=== PATIENT | female | born 1960 | race Two or more races ===

== ENCOUNTER → 2017-01-25 | Outpatient (CLI) | payer MEDICAID ==
--- NOTE | 2017-01-25 15:04 | RADIOLOGY REPORT (SQ) ---
EXAM DESCRIPTION: NM HIDA SCAN WITH CCK COMPLETED DATE/TIME: 01/25/2017 2:42 pm REASON FOR STUDY: RUQ ABDOMINAL PAIN R10.11 RIGHT UPPER QUADRANT PAIN COMPARISON: None. RADIONUCLIDE AND DOSE: DOSAGE RADIONUCLIDE: 5.26 millicuries Tc99m Mebrofenin. DOSAGE CCK: 0.9 micrograms. DOSAGE MORPHINE: Not required. The route of agent administration: Intravenous TECHNIQUE: Serial imaging right upper quadrant up to 60 minutes following injection of radionuclide. CCK injected after gallbladder visualized. LIMITATIONS: None. FINDINGS: LIVER: Normal visualization without areas of photopenia. INTRA AND EXTRAHEPATIC BILE DUCTS: Normal accumulation of activity. GALLBLADDER: Normal visualization. Calculated Ejection Fraction of 5%. Below the normal value of 35% or greater. PHYSICAL RESPONSE: Patients presenting complaint was not reproduced. OTHER: No other significant finding. IMPRESSION: LOW GALLBLADDER EJECTION FRACTION. EVIDENCE FOR BILIARY DYSKINESIS. NO CYSTIC OR COMMO N DUCT OBSTRUCTION. TECHNICAL DOCUMENTATION: JOB ID: [id number] [employer]- All Rights Reserved
== END ==
LOC: RAD 12:24
PROVIDERS: ATTEND Family Medicine
DX: R10.11 Right upper quadrant pain (principal)
CPT/HCPCS: 78227; A9537; J2805

== ENCOUNTER 2017-03-14 12:53 | Day surgery (SDC) | payer MEDICAID ==
[2017-03-07 10:28] LABS: HEMATOCRIT 37.1 % (36.0-47.0); HEMOGLOBIN 13.2 g/dL (12.0-15.5); HGB HCT DIFFERENCE 2.5; MEAN CORPUSCULAR HEMOGLOBIN 33.5 pg (27.0-33.4); MEAN CORPUSCULAR HGB CONC 35.5 g/dL (32.0-36.0); MEAN CORPUSCULAR VOLUME 94 fl (80-97); RED BLOOD COUNT 3.94 10^6/uL (3.72-5.28); RED CELL DISTRIBUTION WIDTH 12.8 % (11.5-14.0)
[2017-03-07 10:56] LABS: ANION GAP 10 (5-19); BLOOD UREA NITROGEN 18 mg/dL (7-20); CALCIUM 9.3 mg/dL (8.4-10.2); CARBON DIOXIDE 29 mmol/L (22-30); CHLORIDE 103 mmol/L (98-107); GLUCOSE 74 mg/dL (75-110); POTASSIUM 4.2 mmol/L (3.6-5.0); SODIUM 142.4 mmol/L (137-145)
--- NOTE | 2017-03-07 11:58 | EKG REPORT ---
SEVERITY:- BORDERLINE ECG - SINUS RHYTHM VENTRICULAR PREMATURE COMPLEX BORDERLINE T ABNORMALITIES, ANT-LAT LEADS : Confirmed by: Luisito Galarza 07-Mar-2017 11:57:58
[~2017-03-14 12:53] MED LIST: BUPIVACAINE HCL 0.25 % INJ/PF (2.5 MG/1 ML) 30 ML VIAL ONE; CIPROFLOXACIN 400 MG/D5W RTU 400 MG/200 ML RTUPB IV PRN; DEXAMETHASONE SOD PHOSPHATE INJ 4 MG/1 ML VIAL ONE; GLYCOPYRROLATE INJ 0.4 MG/2 ML VIAL ONE; LACTATED RINGERS 1000 ML IV PRN; LIDOCAINE 0.5% INJ-PF (5 MG/ML) 50 ML SDV SUBCUT PRN; LIDOCAINE 2% INJ-PF (20 MG/ML) 2 ML AMPUL ONE; ONDANSETRON HCL INJ/PF 4 MG/2 ML SDV ONE; SUCCINYLCHOLINE CHLORIDE INJ 200 MG/10 ML VIAL ONE; VECURONIUM BROMIDE INJ 10 MG VIAL IV ONE
[2017-03-14] MEDS ORDERED: FENTANYL CITRATE INJ/PF 100 MCG/2 ML AMPUL ONE ×4 (14:30→16:37)
[2017-03-14] MEDS ORDERED: PROPOFOL INJ 200 MG/20 ML VIAL IV ONE ×2 (14:31→14:55)
[2017-03-14] MEDS ORDERED: MIDAZOLAM 2 MG/2 ML INJ ONE ×2 (14:31→14:55)
[2017-03-14] MEDS ORDERED: BUPIVACAINE HCL 0.25 % INJ/PF (2.5 MG/1 ML) 30 ML VIAL ONE (14:47)
[2017-03-14] MEDS ORDERED: LIDOCAINE 2% INJ-PF (20 MG/ML) 10 ML AMPUL ONE (14:54)
[2017-03-14] MEDS ORDERED: ONDANSETRON HCL INJ/PF 4 MG/2 ML SDV ONE (14:55)
[2017-03-14] MEDS ORDERED: ACETAMINOPHEN 100 ML IV ONE (14:55)
[2017-03-14] MEDS ORDERED: DEXAMETHASONE SOD PHOSPHATE INJ 4 MG/1 ML VIAL ONE (14:55)
[2017-03-14] MEDS ORDERED: MORPHINE SULFATE 10 MG/ML INJ ONE (14:56)
--- NOTE | 2017-03-14 15:25 | PDOC DISCHARGE SUMMARY ---
Discharge Summary (SDC) - Discharge Final Diagnosis: biliary colic Date of Surgery: 03/14/17 Discharge Date: 03/14/17 Condition: Stable Treatment or Instructions: [facility] [address], [place] [address] Discharge Instructions: Laparoscopic Surgery 1. General Information: a. DO NOT DRIVE a car or operate dangerous machinery for 3-4 days or while taking narcotic pain pills. b. DO NOT consume alcohol, tranquilizers, sleeping medications or any non- prescribed medications for 24 hours unless approved by your doctor or as long as taking narcotic prescription medications. c. DO NOT make important decisions or sign any important papers for the first 24 hours after surgery. d. When discharged home the same day of surgery have a responsible person with you for the first night. 2. Activity Restrictions: 2 weeks a. NO heavy lifting, straining abdominal muscles, bending over a lot, yard work, house work, or sports for [address] NOT drive for 3-4 days c. It is fine to go for walks, up and down steps, ride in a car. d. Elevate your head when sleeping/resting. 3. Treatment: a. You may shower 24 hours after surgery, no baths or swimming for 2 weeks. Remove band-aids or dressings before shower but leave paper strips (steri-strips ) on the skin to fall off on their own. If still on at postoperative visit they will be removed then. b. Drainage of fluid or blood is not unusual from an incision. If occurs, you can clean with peroxide and cotton ball daily and cover with dry gauze until the wound seals. c. If a lot of bleeding occurs, you can hold pressure with a gauze or cloth over the site for 10 minutes and it will usually stop. If bleeding continues you will need to call for possible evaluation in office or emergency room. 4. Medications: a. Toradol may be taken for pain as needed, one tablets every 6 hours. Stop the narcotic when able since you cannot take it and drive, and they cause constipation. You may switch to plain Tylenol as you transition from the narcotic. Many adults find good pain relief with Advil 600-800 mg three times a day with meals. You cannot take Advil while taking Toradol This can cause indigestion, ulcers, and kidney problems with long-term use. b. You should resume all normal medications unless a change is specified by your doctors. c. 5. Diet: Begin with clear liquids and may progress to your normal diet if not nauseated. No high fat, high protein foods the day of surgery. 6. The following may occur after laparoscopic surgery: a. Shoulder or upper back ache from retained gas that should resolve in 1-2 days b. Soreness and bruising at incision sites will resolve with time. c. Scrotal swelling (labia in women) and bruising is often seen after hernia surgery. d. Sore throat e. Fatigue may last days to weeks. f. Difficulty urinating may occur and may need to come into emergency room for urinary catheter placement. 7. Notify Physician If: a. Worsening or pain not improved with pain medication b. Persistent nausea and vomiting c. Fever above 101 d. Persistent bleeding or swelling at operative site e. Unable to urinate and uncomfortable bladder 6-8 hours after surgery 8..Follow Up Care: a. Schedule a follow up appointment with your doctor for 2 weeks. In the event of any postoperative problems or questions or you may call the office during business hours or the On-Call physician evenings and weekends at [facility]. [facility] I understand the instructions for my postoperative care as described above and a copy has been given to me. Patient/Significant Other Witness Date Prescriptions: Ketorolac Tromethamine [Toradol 10 mg Tablet] 10 mg PO Q6HP PRN #25 tablet PRN Reason: Referrals: CHARLES DOBBINS DO [Primary Care Provider] - Discharge Diet: Other (Comments) - Small bland portions Discharge Activity: No Lifting Over 10 Pounds, Walk Frequently Report the Following to Your Physician Immediately: Nausea, Vomiting, Fever over 101 Degrees, Unusual Bleeding, Redness
[2017-03-14] MEDS ORDERED: DIPHENHYDRAMINE HCL 50 MG/ML VIAL IV PRN (15:44)
[2017-03-14] MEDS ORDERED: MEPERIDINE HCL/PF INJ 25 MG/1 ML DISP.SYRIN IV PRN (15:44)
[2017-03-14] MEDS ORDERED: ONDANSETRON HCL INJ/PF 4 MG/2 ML SDV IV PRN (15:44)
[2017-03-14] MEDS ORDERED: PROMETHAZINE HCL INJ 25 MG/1 ML VIAL IV PRN ×2 (15:44)
[2017-03-14] MEDS ORDERED: FENTANYL CITRATE INJ/PF 100 MCG/2 ML AMPUL IV PRN ×3 (15:44)
--- NOTE | 2017-03-14 16:00 | Operative Report ---
Operative Report DATE OF SURGERY: 03/14/17 PREOPERATIVE DIAGNOSIS: Biliary dyskinesia POSTOPERATIVE DIAGNOSIS: Same OPERATION: Laparoscopic cholecystectomy SURGEON: CORRY FOSTER 1ST CERTIFIED REAL ESTATE APPRAISER: FAUSTINA PAIGE ANESTHESIA: GA TISSUE REMOVED OR ALTERED: Gallbladder with contents COMPLICATIONS: None ESTIMATED BLOOD LOSS: Scant INTRAOPERATIVE FINDINGS: See below PROCEDURE: After obtaining informed consent, the patient was taken to the operating room. General Anesthesia was induced; the arms were extended, and the abdomen was exposed, and prepped and draped in a sterile fashion. Instrumentation was set up for laparoscopic cholecystectomy. Surgical plan and surgical timeout were conducted. A vertical incision was made above the umbilicus, and a verres needle was inserted uneventfully into the peritoneal cavity. Pneumoperitoneum was established. The verres needle was removed and a 5 mm trocar was inserted and a 5 mm flexible laparoscope was inserted. Visualization of the peritoneal cavity confirmed safe uneventful entry. Under direct visualization 3 additional 5 mm ports were established, one in the subxiphoid position and second in the subcostal position. Visualization of the hepatobiliary anatomy revealed no anatomic variations. A grasper was placed on the fundus of the gallbladder and the gallbladder is elevated over the right surface of the liver; a second grasper was used to grasp the infundibulum of the gallbladder. The neck of the gallbladder and junction with the cystic duct was dissected out. The Cystic artery was in its usual location medial and cephalad to the cystic duct. The cystic artery was surrounded with a right angle clamp, clipped twice proximally and divided with laparoscopic scissors. We now opened the triangle of Calot by dividing the peritoneal reflection on both the medial and lateral sides of the cystic duct infundibular junction. The critical view was obtained. We now milked the cystic duct of any possible stones, clipped the cystic duct approximately 2 times once distally and divided with scissors. The gallbladder was now removed from the undersurface of the liver using hook cautery dissection. Graspers were repositioned and the gallbladder was removed uneventfully from the abdominal cavity through the super umbilical port site incision. The specimen was examined, then passed off to pathology for permanent analysis. We returned to the peritoneal cavity check for bleeding, and evidence of bile leak, and there was none. We Confirmed satisfactory placement of clips on cystic duct and cystic artery were secured . At this point we felt the operation was complete. The subcutaneous tissue was then anesthetized with quarter percent Marcaine Sponge and needle counts are correct. All ports removed under direct visualization pneumoperitoneum evacuated, and 5 mm port wounds closed with 3-0 Vicryl suture, benzoin and Steri-Strips. The patient was extubated, and taken to the recovery room in stable condition. The physician administrative personal assistant, Ms. Khan, provided assistance during this case by: Assisting and port insertion, retracting tissue, instillation of local anesthesia and closure of skin incisions.
[2017-03-14] MEDS ORDERED: KETOROLAC TROMETHAMINE 10 MG TABLET PO PRN (17:08)
[2017-03-14] MEDS ORDERED: METOCLOPRAMIDE HCL INJ/PF 10 MG/2 ML SDV ONE (17:13)
[2017-03-14 19:23] VITALS: BP 92/58
== END 2017-03-14 18:35 | disposition home or self-care (01) ==
LOC: OROUT 12:53
PROVIDERS: ATTEND Surgery
PROC: 0FT44ZZ Resection of Gallbladder, Percutaneous Endoscopic Approach (ICD-10-PCS; principal; 2017-03-14 14:15)
DX: K82.8 Other specified diseases of gallbladder (principal); E03.9 Hypothyroidism, unspecified; R53.1 Weakness; R26.2 Difficulty in walking, not elsewhere classified; K21.9 Gastro-esophageal reflux disease without esophagitis; Z88.0 Allergy status to penicillin; Z88.5 Allergy status to narcotic agent; Z79.899 Other long term (current) drug therapy
CPT/HCPCS: 93005; 36415; 85027; 80048; 88304 ×2; 93010; 47562; J2250; J1100; J3010; J3490 ×3; J2765; J0330; J2405; S0020; J2704; J0744; J0131; 790; J2270

== ENCOUNTER 2017-11-05 16:48 | Emergency (ER) | payer MEDICAID ==
--- NOTE | 2017-11-05 17:27 | ER Document Report ---
ED Medical Screen (RME) - General Chief Complaint: Ankle Injury Stated Complaint: L ANKLE PAIN Time Seen by Provider: 11/05/17 17:26 Mode of Arrival: Wheelchair Information source: Patient Notes: Patient presents emergency department with complaints of left ankle pain. Reports she fell in her house last night around midnight. Complains of ankle pain. Has brace on her ankle. I have greeted and performed a rapid initial assessment of this patient. A comprehensive ED assessment and evaluation of the patient, analysis of test results and completion of the medical decision making process will be conducted by additional ED providers. TRAVEL OUTSIDE OF THE [place] IN LAST 30 DAYS: No - Related Data Allergies/Adverse Reactions: morphine Allergy (Severe, Verified 11/05/17 16:49) ? iodine [Iodine] Allergy (Verified 11/05/17 16:49) Penicillins Allergy (Verified 11/05/17 16:49) Sulfa (Sulfonamide Antibiotics) Allergy (Verified 11/05/17 16:49) Past Medical History - Past Medical History Cardiac Medical History: Denies: Hx Coronary Artery Disease, Hx Heart Attack, Hx Hypercholesterolemia , Hx Hypertension - LOW BP Pulmonary Medical History: Denies: Hx Asthma, Hx Bronchitis, Hx COPD, Hx Pneumonia Neurological Medical History: Denies: Hx Cerebrovascular Accident, Hx Migraine, Hx Seizures Endocrine Medical History: Denies: Hx Diabetes Mellitus Type 2 GI Medical History: Denies: Hx Gastroesophageal Reflux Disease Musculoskeltal Medical History: Denies Hx Arthritis - Immunizations Hx Diphtheria, Pertussis, Tetanus Vaccination: Yes History of Influenza Vaccine for 12/2016 - 05/2017 Season: No Doctor's Discharge - Discharge Referrals: CHARLES DOBBINS DO [Primary Care Provider] - Follow up as needed
[2017-11-05 18:21] VITALS: BP 92/61
[2017-11-05] MEDS ORDERED: ACETAMINOPHEN 325 MG TABLET PO ONE (18:24)
[2017-11-05] MEDS ORDERED: IBUPROFEN 400 MG TABLET PO ONE (18:24)
--- NOTE | 2017-11-05 18:46 | RADIOLOGY REPORT (SQ) ---
EXAM DESCRIPTION: FOOT LEFT COMPLETE COMPLETED DATE/TIME: 11/05/2017 6:38 pm REASON FOR STUDY: twisted ankle COMPARISON: None. NUMBER OF VIEWS: Three views. TECHNIQUE: AP, lateral and oblique radiographic images acquired of the left foot. LIMITATIONS: None. FINDINGS: MINERALIZATION: Normal. BONES: No acute fracture or dislocation. No worrisome bone lesions. JOINTS: No effusions. SOFT TISSUES: No soft tissue swelling. No foreign body. OTHER: No other significant finding. IMPRESSION: NEGATIVE STUDY OF THE LEFT FOOT. NO RADIOGRAPHIC EVIDENCE OF ACUTE INJURY. TECHNICAL DOCUMENTATION: JOB ID: [id number] [employer]- All Rights Reserved Reading location - IP/workstation name: [email or web address]
--- NOTE | 2017-11-05 18:48 | RADIOLOGY REPORT (SQ) ---
EXAM DESCRIPTION: ANKLE LEFT COMPLETE COMPLETED DATE/TIME: 11/05/2017 6:38 pm REASON FOR STUDY: twisted ankle COMPARISON: None. NUMBER OF VIEWS: Three views. TECHNIQUE: AP, lateral, and oblique radiographic images acquired of the left ankle. LIMITATIONS: None. FINDINGS: MINERALIZATION: Normal. BONES: No acute fracture or dislocation. No worrisome bone lesions. JOINTS: No effusions. SOFT TISSUES: No soft tissue swelling. No foreign body. OTHER: No other significant finding. IMPRESSION: NEGATIVE STUDY OF THE LEFT ANKLE. NO RADIOGRAPHIC EVIDENCE OF ACUTE INJURY. TECHNICAL DOCUMENTATION: JOB ID: [id number] [employer]- All Rights Reserved Reading location - IP/workstation name: [email or web address]
--- NOTE | 2017-11-05 18:57 | ER Document Report ---
HPI - HPI Patient complains to provider of: fell Onset/Duration: Sudden Quality of pain: Throbbing Pain Level: 5 Context: 57 yo female fell today and twisted left ankle. In by EMS. No previous injury Associated Symptoms: None Exacerbated by: Walking Relieved by: Denies - ROS ROS below otherwise negative: Yes Systems Reviewed and Negative: Yes All other systems reviewed and negative - REPRODUCTIVE Reproductive: DENIES: : Past Medical History - General Information source: Patient - Social History Smoking Status: Never Smoker Frequency of alcohol use: None Drug Abuse: None Lives with: Family Family History: Hypertension Surgical Hx: Negative - Immunizations Hx Diphtheria, Pertussis, Tetanus Vaccination: Yes Vertical Provider Document - CONSTITUTIONAL Agree With Documented VS: Yes Exam Limitations: No Limitations General Appearance: No Apparent Distress - INFECTION CONTROL TRAVEL OUTSIDE OF THE [place] IN LAST 30 DAYS: No - MUSCULOSKELETAL/EXTREMETIES Musculoskeletal/Extremeties: MAEW, Tender, Edema - dorsal left selena and inferior to bilateral malleoli Notes: 2+ DP - NEURO Level of Consciousness: Alert Motor/Sensory: No Motor Deficit, No Sensory Deficit Course - Re-evaluation Re-evalutation: 11/05/17 18:55 X-rays are negative per radiologist, will splint and refer to ortho - Vital Signs Vital signs: Temp Pulse Resp BP Pulse Ox 98.2 F 68 16 92/61 L 99 11/05/17 18:19 11/05/17 18:19 11/05/17 18:19 11/05/17 18:19 11/05/17 18:19 Procedures - Immobilization Left Ankle Time completed: 19:02 Pre-Proc Neuro Vasc Exam: Normal Immobilizer type: Ankle stirrup Performed by: PCT Post-Proc Neuro Vasc Exam: Normal Alignment checked and good: Yes Discharge - Discharge Clinical Impression: Ankle sprain Qualifiers: Encounter type: initial encounter Involved ligament of ankle: unspecified ligament Laterality: unspecified laterality Qualified Code(s): S93.409A - Sprain of unspecified ligament of unspecified ankle, initial encounter Condition: Good Disposition: HOME, SELF-CARE Instructions: Acetaminophen, Ankle Stirrup Splint ([facility]), Ibuprofen (General) ( [facility]), Sprained Ankle ([facility]) Additional Instructions: Splint for comfort Tylenol up to 4000 mg per day for discomfort Motrin 3 times a day for inflammation See the orthopedist if the ankle still hurts a week from now copy of negative imaging reports given to you Prescriptions: Ibuprofen [Motrin 400 mg Tablet] 400 mg PO Q6HP PRN #30 tablet PRN Reason: Referrals: CHARLES DOBBINS DO [Primary Care Provider] - Follow up as needed
== END 2017-11-05 19:17 | disposition home or self-care (01) ==
LOC: ER 16:48
DX: S93.409A Sprain of unspecified ligament of unspecified ankle, initial encounter (principal); W19.XXXA Unspecified fall, initial encounter
CPT/HCPCS: 99283; 73610; 73630; L4350; J3490 ×2

== ENCOUNTER 2018-11-05 20:17 | Emergency (ER) | payer MEDICAID ==
[2018-11-05] MEDS ORDERED: DIPHENHYDRAMINE HCL 25 MG CAPSULE PO ONE (22:00)
[2018-11-05] MEDS ORDERED: DOXYCYCLINE HYCLATE 100 MG TABLET PO ONE (22:04)
--- NOTE | 2018-11-05 22:04 | ER Document Report ---
ED General - General Chief Complaint: Insect Bite Stated Complaint: POSSIBLE INSECT BITES Time Seen by Provider: 11/05/18 21:58 Primary Care Provider: CHARLES DOBBINS DO [Primary Care Provider] - Follow up as needed TRAVEL OUTSIDE OF THE [place] IN LAST 30 DAYS: No - HPI Patient complains to provider of: bug bites Notes: 88-year-old female presents with count was bug bites all over her bilateral upper extremities of her chest and legs. She presents via EMS. They say her house was crawling but she was covered in bedbugs. Patient emergently taken to our decontamination room. Where she is showered and scrubbed. Patient continues to endorse profound itching. Denies fever chills or cough. - Related Data Allergies/Adverse Reactions: morphine Allergy (Severe, Verified 11/05/18 21:39) ? iodine [Iodine] Allergy (Verified 11/05/18 21:39) Penicillins Allergy (Verified 11/05/18 21:39) Sulfa (Sulfonamide Antibiotics) Allergy (Verified 11/05/18 21:39) Past Medical History - Social History Smoking Status: Unknown if Ever Smoked Family History: Hypertension Patient has suicidal ideation: No Patient has homicidal ideation: No - Past Medical History Cardiac Medical History: Denies: Hx Coronary Artery Disease, Hx Heart Attack, Hx Hypercholesterolemia, Hx Hypertension - LOW BP Pulmonary Medical History: Denies: Hx Asthma, Hx Bronchitis, Hx COPD, Hx Pneumonia Neurological Medical History: Denies: Hx Cerebrovascular Accident, Hx Migraine, Hx Seizures Endocrine Medical History: Denies: Hx Diabetes Mellitus Type 2 Renal/ Medical History: Denies: Hx Peritoneal Dialysis GI Medical History: Denies: Hx Gastroesophageal Reflux Disease Musculoskeletal Medical History: Denies Hx Arthritis - Immunizations Hx Diphtheria, Pertussis, Tetanus Vaccination: Yes Review of Systems - Review of Systems Notes: REVIEW OF SYSTEMS: CONSTITUTIONAL: -fevers, -chills EENT: -eye pain, -difficulty swallowing, -nasal congestion CARDIOVASCULAR: -chest pain, -syncope. RESPIRATORY: -cough, -SOB GASTROINTESTINAL: -abdominal pain, -nausea, -vomiting, -diarrhea GENITOURINARY: -dysuria, -hematuria MUSCULOSKELETAL: -back pain, -neck pain SKIN: large Number of bug bites over her entire body. Multiple scratching deleon HEMATOLOGIC: -easy bruising or bleeding. LYMPHATIC: -swollen, enlarged glands. NEUROLOGICAL: -altered mental status or loss of consciousness, -headache, - neurologic symptoms PSYCHIATRIC: -anxiety, -depression. ALL OTHER SYSTEMS REVIEWED AND NEGATIVE. Physical Exam - Vital signs Vitals: Temp Pulse Resp BP Pulse Ox 97.5 F 74 20 99/59 L 100 11/05/18 21:09 11/05/18 21:09 11/05/18 21:09 11/05/18 21:09 11/05/18 21:09 - Notes Notes: PHYSICAL EXAMINATION: GENERAL: Well-appearing, well-nourished and in no acute distress. HEAD: Atraumatic, normocephalic. EYES: Pupils equal round and reactive to light, extraocular movements intact, sclera anicteric, conjunctiva are normal. ENT: nares patent, oropharynx clear without exudates. Moist mucous membranes. NECK: Normal range of motion, supple without lymphadenopathy LUNGS: Breath sounds clear to auscultation bilaterally and equal. No wheezes rales or rhonchi. HEART: Regular rate and rhythm without murmurs ABDOMEN: Soft, nontender, normoactive bowel sounds. No guarding, no rebound. No masses appreciated. EXTREMITIES: Normal range of motion, no pitting or edema. No cyanosis. NEUROLOGICAL: Cranial nerves grossly intact. Normal speech, normal gait. Normal sensory and motor exams. PSYCH: Normal mood, normal affect. SKIN: Any bug bites with scratching possible secondary infection throughout her body. Course - Re-evaluation Re-evalutation: 11/05/18 22:17 58-year-old female presents with a large number of insect bites all over her body. [facility]. Patient recommended that she shave her head. The last herself.. Patient was given oral diphenhydramine for itching, hydrocortisone cream as well. Doxycycline for possible secondary skin infection. Will be discharged home 11/05/18 22:21 Prescription for doxycycline and permethrin - Vital Signs Vital signs: Temp Pulse Resp BP Pulse Ox 97.5 F 74 20 99/59 L 100 11/05/18 21:09 11/05/18 21:09 11/05/18 21:09 11/05/18 21:09 11/05/18 21:09 Discharge - Discharge Clinical Impression: Infestation by bed bug Condition: Stable Disposition: HOME, SELF-CARE Instructions: Insect Bites ([facility]) Prescriptions: Doxycycline Monohydrate [Mondoxyne Nl] 100 mg PO BID #14 capsule Permethrin [A-200 Lice Control] 1 applic MC ASDIR PRN #1 spray PRN Reason: Referrals: CHARLES DOBBINS DO [Primary Care Provider] - Follow up as needed
[2018-11-05] MEDS ORDERED: HYDROCORTISONE 1% CREAM 28.35 GM TP ONE (22:16)
[2018-11-05] MEDS ORDERED: HYDROCORTISONE 1% CREAM 28.35 GM ONE (22:56)
[2018-11-05 23:17] VITALS: BP 124/72
== END 2018-11-05 23:10 | disposition home or self-care (01) ==
LOC: ER 20:17
DX: S40.862A Insect bite (nonvenomous) of left upper arm, initial encounter (principal); S40.861A Insect bite (nonvenomous) of right upper arm, initial encounter; S20.369A Insect bite (nonvenomous) of unspecified front wall of thorax, initial encounter; S80.862A Insect bite (nonvenomous), left lower leg, initial encounter; S80.861A Insect bite (nonvenomous), right lower leg, initial encounter; W57.XXXA Bitten or stung by nonvenomous insect and other nonvenomous arthropods, initial encounter; Y92.009 Unspecified place in unspecified non-institutional (private) residence as the place of occurrence of the external cause; Z88.0 Allergy status to penicillin; Z88.5 Allergy status to narcotic agent; Z88.2 Allergy status to sulfonamides
CPT/HCPCS: 99281; J3490 ×3

== ENCOUNTER 2018-11-07 13:39 | Emergency (ER) | payer MEDICAID ==
[2018-11-07 13:56] VITALS: BP 105/59
[2018-11-07] MEDS ORDERED: DIPHENHYDRAMINE HCL 50 MG CAPSULE PO ONE (15:45)
--- NOTE | 2018-11-07 15:52 | ER Document Report ---
ED General - General Chief Complaint: Insect Bite Stated Complaint: BUG BITE Time Seen by Provider: 11/07/18 14:07 Primary Care Provider: CHARLES DOBBINS DO [Primary Care Provider] - Follow up tomorrow Mode of Arrival: Ambulatory Information source: Patient TRAVEL OUTSIDE OF THE U.S. IN LAST 30 DAYS: No - HPI Notes: 59-year-old female presents the ED for complaints of itching from having a bedbug infestation via EMS. Patient was seen in the ED approximately 2 days ago, was given a thorough shower and advised not to go back to her home until her house has been decontaminated. Patient to go back to her home, was extremely exposed to bedbugs, came in today complaining of itching. Denies fevers, chills, chest pain,palpitations, shortness of breath, dyspnea, nausea, vomiting, diarrhea, abdominal pain, hematuria, LH, dizziness, syncope, headaches, wheezing, ST, URI, neck pain, weakness, bowel or bladder dysfunction, saddle anesthesia, numbness or tingling in bilateral upper or lower extremities equally, muscle paralysis, weakness in bilateral upper or lower extremities equally, - Related Data Allergies/Adverse Reactions: morphine Allergy (Severe, Verified 11/05/18 21:39) ? iodine [Iodine] Allergy (Verified 11/05/18 21:39) Penicillins Allergy (Verified 11/05/18 21:39) Sulfa (Sulfonamide Antibiotics) Allergy (Verified 11/05/18 21:39) Past Medical History - General Information source: Patient - Social History Smoking Status: Unknown if Ever Smoked Family History: Hypertension Patient has suicidal ideation: No Patient has homicidal ideation: No - Past Medical History Cardiac Medical History: Denies: Hx Coronary Artery Disease, Hx Heart Attack, Hx Hypercholesterolemia, Hx Hypertension - LOW BP Pulmonary Medical History: Denies: Hx Asthma, Hx Bronchitis, Hx COPD, Hx Pneumonia Neurological Medical History: Denies: Hx Cerebrovascular Accident, Hx Migraine, Hx Seizures Endocrine Medical History: Denies: Hx Diabetes Mellitus Type 2 Renal/ Medical History: Denies: Hx Peritoneal Dialysis GI Medical History: Denies: Hx Gastroesophageal Reflux Disease Musculoskeletal Medical History: Denies Hx Arthritis - Immunizations Hx Diphtheria, Pertussis, Tetanus Vaccination: Yes Review of Systems - Review of Systems Constitutional: No symptoms reported EENT: No symptoms reported Cardiovascular: No symptoms reported Respiratory: No symptoms reported Gastrointestinal: No symptoms reported Genitourinary: No symptoms reported Female Genitourinary: No symptoms reported Musculoskeletal: No symptoms reported Skin: See HPI Hematologic/Lymphatic: No symptoms reported Neurological/Psychological: No symptoms reported Physical Exam - Vital signs Vitals: Temp Pulse BP Pulse Ox 98.2 F 78 105/59 L 100 11/07/18 13:47 11/07/18 13:47 11/07/18 13:47 11/07/18 13:47 - Notes Notes: PHYSICAL EXAMINATION: GENERAL: Well-appearing, well-nourished and in no acute distress. HEAD: Atraumatic, normocephalic. EYES: Pupils equal round and reactive to light, extraocular movements intact, conjunctiva are normal. ENT: Nares patent, oropharynx clear without exudates. Moist mucous membranes. NECK: Normal range of motion, supple without lymphadenopathy LUNGS: Breath sounds clear to auscultation bilaterally and equal. No wheezes rales or rhonchi. HEART: Regular rate and rhythm without murmurs ABDOMEN: Soft, nontender, nondistended abdomen. No guarding, no rebound. No masses appreciated. Female : deferred Musculoskeletal: Normal range of motion, no pitting or edema. No cyanosis. NEUROLOGICAL: Cranial nerves grossly intact. Normal speech, normal gait. Normal sensory, motor exams PSYCH: Normal mood, normal affect. SKIN: Warm, Dry, normal turgor, no rashes with noted bug bites on her legs, arms, fingers with scant erythema and warmth to touch. no open wounds or drainage. Course - Re-evaluation Re-evalutation: 11/07/18 16:29 Afebrile vitals stable no distress. Patient states that she will be staying at her mother's house after leaving the ED today and is having an business architect come to her house for decontamination. Patient understands that if she goes home she will be re-exposed to bedbugs. Patient given 50 mg Benadryl orally, will start her on a course of antibiotic treatment due to cellulitic effects from bedbugs on her arms and legs. Patient was given a shower, new clothing was provided. Patient verbalized understanding that her home needs to have bugs exterminated prior to returning to her home. After performing a Medical Screening Examination, I estimate there is LOW risk for any life threatening rash. At this time the patient looks extremely well and there are no signs of systemic infection, however this may change at any time and the rash may change. I have reevaluated this patient multiple times and no significant life threatening changes are noted. The patient and I have discussed the diagnosis and risks, and we agree with discharging home with close follow-up with the understanding that symptoms and presentations can change. We also discussed returning to the Emergency Department immediately if new or worsening symptoms occur. We have discussed the symptoms which are most concerning (e.g., changing or worsening pain, fever, numbness, weakness, cool or painful digits) that necessitate immediate return. - Vital Signs Vital signs: Temp Pulse Resp BP Pulse Ox 98.2 F 78 105/59 L 100 11/07/18 13:47 11/07/18 13:47 11/07/18 13:47 11/07/18 13:47 Discharge - Discharge Clinical Impression: Infestation by bed bug Condition: Stable Disposition: HOME, SELF-CARE Instructions: Cellulitis ([facility]) Additional Instructions: Take Benadryl as needed. You do need your house to be exterminated of bedbugs before going back and living there otherwise we will have bedbug station with bed bug bite. Follow-up with primary care provider within the next 1 to 2 days. Take Benadryl for your itching. Return immediately for any new or worsening symptoms. Follow up with primary care provider, call tomorrow to make followup appointment. Prescriptions: Diphenhydramine HCl [Benadryl Allergy] 25 mg PO Q6HP PRN #30 tablet PRN Reason: Doxycycline Hyclate 100 mg PO BID #14 capsule Referrals: CHARLES DOBBINS DO [Primary Care Provider] - Follow up tomorrow
== END 2018-11-07 16:00 | disposition home or self-care (01) ==
LOC: ER 13:39
DX: S80.862A Insect bite (nonvenomous), left lower leg, initial encounter (principal); S80.861A Insect bite (nonvenomous), right lower leg, initial encounter; S40.862A Insect bite (nonvenomous) of left upper arm, initial encounter; S40.861A Insect bite (nonvenomous) of right upper arm, initial encounter; S60.469A Insect bite (nonvenomous) of unspecified finger, initial encounter; W57.XXXA Bitten or stung by nonvenomous insect and other nonvenomous arthropods, initial encounter

== ENCOUNTER 2019-03-25 04:55 | Emergency (ER) | payer MEDICAID ==
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
[2019-03-25 10:11] LABS: ABSOLUTE LYMPHOCYTES (AUTO) 2.3 10^3/uL (0.5-4.7); ABSOLUTE MONOCYTES (AUTO) 0.6 10^3/uL (0.1-1.4); ABSOLUTE NEUT (AUTO) 3.6 10^3/uL (1.7-8.2); BASOPHILS % (AUTO) 0.5 % (0-2); EOSINOPHILS % (AUTO) 0.4 % (0-6); HEMATOCRIT 38.1 % (36.0-47.0); HEMOGLOBIN 13.2 g/dL (12.0-15.5); LYMPHOCYTES % (AUTO) 35.4 % (13-45); MEAN CORPUSCULAR HEMOGLOBIN 32.1 pg (27.0-33.4); MEAN CORPUSCULAR HGB CONC 34.7 g/dL (32.0-36.0); MEAN CORPUSCULAR VOLUME 93 fl (80-97); MONOCYTES % (AUTO) 9.2 % (3-13); PLATELET COUNT 221 10^3/uL (150-450); RED BLOOD COUNT 4.12 10^6/uL (3.72-5.28); RED CELL DISTRIBUTION WIDTH 13.2 % (11.5-14.0); SEGMENTED NEUTROPHILS % (AUTO) 54.5 % (42-78); TOTAL CELLS COUNTED % (AUTO) 100 %; WHITE BLOOD COUNT 6.6 10^3/uL (4.0-10.5)
[2019-03-25 10:22] LABS: APPEARANCE,URINE CLOUDY; BILIRUBIN,URINE NEGATIVE (NEGATIVE); GLUCOSE, URINE NEGATIVE (NEGATIVE); KETONES,URINE TRACE mg/dL (NEGATIVE); LEUKOCYTE ESTERASE,URINE SMALL (NEGATIVE); NITRITE,URINE NEGATIVE (NEGATIVE); PROTEIN,URINE 100 mg/dL (NEGATIVE); URINE SPECIFIC GRAVITY 1.026; UROBILINOGEN,URINE NEGATIVE mg/dL (<2.0)
[2019-03-25 10:23] LABS: COLOR,URINE YELLOW
[2019-03-25 10:29] LABS: ALBUMIN 4.3 g/dL (3.5-5.0); ALKALINE PHOSPHATASE 90 U/L (38-126); ANION GAP 11 (5-19); ASPARTATE AMINO TRANSFERASE 23 U/L (14-36); BILIRUBIN,DIRECT 0.2 mg/dL (0.0-0.4); BILIRUBIN,TOTAL 0.5 mg/dL (0.2-1.3); BLOOD UREA NITROGEN 27 mg/dL (7-20); CALCIUM 9.8 mg/dL (8.4-10.2); CARBON DIOXIDE 26 mmol/L (22-30); CHLORIDE 103 mmol/L (98-107); GLUCOSE 96 mg/dL (75-110); POTASSIUM 3.2 mmol/L (3.6-5.0); SALICYLATE 8.6 mg/dL (2.0-20.0); TOTAL PROTEIN 7.5 g/dL (6.3-8.2)
[2019-03-25 10:32] LABS: ACETAMINOPHEN < 10 ug/mL (10-30); ALCOHOL < 10 mg/dL (NONE DETECTED)
[2019-03-25 10:36] LABS: URINE AMPHETAMINES SCREEN NEGATIVE; URINE BARBITURATES SCREEN NEGATIVE; URINE BENZODIAZEPINES SCREEN NEGATIVE; URINE COCAINE SCREEN NEGATIVE; URINE MARIJUANA (THC) SCREEN NEGATIVE; URINE METHADONE SCREEN NEGATIVE; URINE PHENCYCLIDINE SCREEN NEGATIVE
[2019-03-25] MEDS ORDERED: PHENAZOPYRIDINE HCL 200 MG TABLET PO ONE (10:55)
[2019-03-25] MEDS ORDERED: CIPROFLOXACIN HCL 750 MG TABLET PO ONE (10:57)
[2019-03-25] MEDS: PANTOPRAZOLE SODIUM 40 MG TABLET.DR PO SCH (11:16)
[2019-03-25] MEDS ORDERED: CEPHALEXIN 500 MG CAPSULE PO ONE (11:31)
[2019-03-25] MEDS ORDERED: TUBERCULIN,PURIF.PROT.DERIV. 5 TU/0.1 ML TEST 1 ML VIAL ID ONE ×2 (14:47→19:00)
[2019-03-25] MEDS ORDERED: CIPROFLOXACIN HCL 500 MG TABLET PO SCH (18:00)
[2019-03-25] MEDS: PHENAZOPYRIDINE HCL 100 MG TABLET PO SCH (19:00)
[2019-03-25] MEDS: CEPHALEXIN 500 MG CAPSULE PO SCH (19:01)
--- NOTE | 2019-03-25 20:16 | EKG REPORT ---
SEVERITY:- BORDERLINE ECG - SINUS RHYTHM BORDERLINE T ABNORMALITIES, ANTERIOR LEADS : Confirmed by: Mary Sheriff MD 25-Mar-2019 20:15:55
[2019-03-26] MEDS ORDERED: GABAPENTIN 300 MG CAPSULE PO ONE (01:07)
[2019-03-26] MEDS ORDERED: LEVOTHYROXINE SODIUM 0.088 MG TABLET PO ONE (06:00)
[2019-03-26] MEDS ORDERED: LEVOTHYROXINE SODIUM 0.088 MG TABLET ONE (06:32)
[2019-03-26] MEDS: PANTOPRAZOLE SODIUM 40 MG TABLET.DR PO SCH (10:50)
[2019-03-26] MEDS: CEPHALEXIN 500 MG CAPSULE PO SCH ×2 (10:50→18:42)
[2019-03-26] MEDS: PHENAZOPYRIDINE HCL 100 MG TABLET PO SCH ×3 (10:50→18:43)
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
[2019-03-26] MEDS ORDERED: HALOPERIDOL LACTATE INJ 5 MG/1 ML VIAL IM ONE (20:46)
[2019-03-27] MEDS: PHENAZOPYRIDINE HCL 100 MG TABLET PO SCH ×2 (09:10→13:10)
[2019-03-27] MEDS: CEPHALEXIN 500 MG CAPSULE PO SCH (09:10)
[2019-03-27] MEDS: PANTOPRAZOLE SODIUM 40 MG TABLET.DR PO SCH (09:10)
[2019-03-27 11:32] VITALS: BP 123/68
== END 2019-03-27 16:30 | disposition home or self-care (01) ==
LOC: ER 04:55
DX: N39.0 Urinary tract infection, site not specified (principal); S80.12XA Contusion of left lower leg, initial encounter; S80.11XA Contusion of right lower leg, initial encounter; X58.XXXA Exposure to other specified factors, initial encounter; F17.200 Nicotine dependence, unspecified, uncomplicated; Z90.49 Acquired absence of other specified parts of digestive tract; Z88.0 Allergy status to penicillin; Z88.2 Allergy status to sulfonamides
CPT/HCPCS: 93005; 99284; 96372; 36415; 80307 ×4; 85025; 80053; 81001; 93010; J3490 ×3

== ENCOUNTER 2019-03-27 19:14 | Emergency (ER) | payer MEDICAID ==
[2019-03-27 19:45] VITALS: BP 132/102
[2019-03-27] MEDS ORDERED: ACETAMINOPHEN 325 MG TABLET PO ONE (23:08)
--- NOTE | 2019-03-27 23:11 | ER Document Report ---
HPI - HPI Time Seen by Provider: 03/27/19 23:08 Notes: 59-year-old female patient tracking into the emergency department with complaints of seizure-like activity. Patient has been in this emergency department for 3 days as a social hold. Patient verbalized discontent with being discharged, on the way out of the ER she started having shaking movements while yelling verbally "I am having a seizure". This was witnessed by multiple staff members, there was no seizure activity. - REPRODUCTIVE Reproductive: DENIES: : Past Medical History - General Information source: Patient - Social History Smoking Status: Never Smoker Lives with: Family Family History: Hypertension - Past Medical History Cardiac Medical History: Denies: Hx Coronary Artery Disease, Hx Heart Attack, Hx Hypercholesterolemia, Hx Hypertension - LOW BP Pulmonary Medical History: Denies: Hx Asthma, Hx Bronchitis, Hx COPD, Hx Pneumonia Neurological Medical History: Denies: Hx Cerebrovascular Accident, Hx Migraine, Hx Seizures Endocrine Medical History: Reports: Hx Hypothyroidism. Denies: Hx Diabetes Mellitus Type 2 Renal/ Medical History: Denies: Hx Peritoneal Dialysis GI Medical History: Denies: Hx Gastroesophageal Reflux Disease Musculoskeletal Medical History: Denies Hx Arthritis Past Surgical History: Reports: Hx Cholecystectomy - Immunizations Hx Diphtheria, Pertussis, Tetanus Vaccination: Yes Vertical Provider Document - CONSTITUTIONAL Notes: PHYSICAL EXAMINATION: GENERAL: Well-appearing, well-nourished and in no acute distress. HEAD: Atraumatic, normocephalic. EYES: Pupils equal round extraocular movements intact, conjunctiva are normal. ENT: Nares patent NECK: Normal range of motion LUNGS: No respiratory distress Musculoskeletal: Normal range of motion NEUROLOGICAL: Normal speech, normal gait. PSYCH: Normal mood, normal affect. SKIN: Warm, Dry, normal turgor, no rashes or lesions noted. - INFECTION CONTROL TRAVEL OUTSIDE OF THE [place] IN LAST 30 DAYS: No Course - Re-evaluation Re-evalutation: Patient has no medical complaints, she wants to stay in the emergency department. The emergency department recently discharged her approximately 15 minutes prior to her checking back in, she states that she does not want to go to the hotel that they have set up a ride for her to get to. The hospital has agreed to pay for a taxi ride. Patient re-counseled that the emergency department is not a place for permanent residency and that at this time she must be discharged. After some debate patient finally agreed to be discharged without incident. Nursing staff wheeled her out to the lobby and assisted her into the taxi which is being paid for by [employer]. - Vital Signs Vital signs: Temp Pulse Resp BP Pulse Ox 98.7 F 66 16 132/102 H 98 03/27/19 19:43 03/27/19 19:43 03/27/19 19:43 03/27/19 19:43 03/27/19 19:43 Discharge - Discharge Clinical Impression: Infestation by bed bug, Neck pain Condition: Stable Disposition: HOME, SELF-CARE Additional Instructions: You were just discharged from the emergency department and had what you thought was seizure-like activity. We do not believe this was a seizure. I believe you are having neck spasms. You have been given Tylenol for this. You are medically cleared from the emergency department. Referrals: CHARLES DOBBINS, [Primary Care Provider] - Follow up as needed
== END 2019-03-27 23:50 | disposition home or self-care (01) ==
LOC: ER 19:14
DX: R56.9 Unspecified convulsions (principal); M54.2 Cervicalgia; T14.8XXA Other injury of unspecified body region, initial encounter; W57.XXXA Bitten or stung by nonvenomous insect and other nonvenomous arthropods, initial encounter; E03.9 Hypothyroidism, unspecified; Z90.49 Acquired absence of other specified parts of digestive tract
CPT/HCPCS: 99284; J3490

== ENCOUNTER 2019-03-31 21:26 | Emergency (ER) | payer MEDICAID ==
[2019-03-31] MEDS ORDERED: TUBERCULIN,PURIF.PROT.DERIV. 5 TU/0.1 ML TEST 1 ML VIAL ID ONE ×2 (22:56→23:54)
--- NOTE | 2019-04-01 | ER Document Report ---
HPI - HPI Time Seen by Provider: 03/31/19 22:32 Pain Level: Denies Notes: 59-year-old female patient presents emergency department requesting PPD placement. Patient was here earlier this week and maintained residency in the emergency department for 3 days as a social hold. At that time patient had been kicked out of her house, social work here in the emergency department held her for social hold/pending placement. Patient at that time refused to have a PPD placed, she felt that we were trying to poison her. Ultimately patient was discharged from the emergency department as she had no medical reason to be here. Patient now working with [employer], states that they need her to have a PPD placed so they can get her placed into a facility. Patient is agreeable to this at this time. Patient has no other complaints. - REPRODUCTIVE LMP: menopause Reproductive: DENIES: : Past Medical History - General Information source: Patient - Social History Smoking Status: Never Smoker Chew tobacco use (# tins/day): No Frequency of alcohol use: None Drug Abuse: None Family History: Hypertension Patient has suicidal ideation: No Patient has homicidal ideation: No - Past Medical History Cardiac Medical History: Denies: Hx Coronary Artery Disease, Hx Heart Attack, Hx Hypercholesterolemia, Hx Hypertension - LOW BP Pulmonary Medical History: Denies: Hx Asthma, Hx Bronchitis, Hx COPD, Hx Pneumonia Neurological Medical History: Denies: Hx Cerebrovascular Accident, Hx Migraine, Hx Seizures Endocrine Medical History: Reports: Hx Hypothyroidism. Denies: Hx Diabetes Mellitus Type 2 Renal/ Medical History: Denies: Hx Peritoneal Dialysis GI Medical History: Denies: Hx Gastroesophageal Reflux Disease Musculoskeletal Medical History: Denies Hx Arthritis Past Surgical History: Reports: Hx Cholecystectomy - Immunizations Hx Diphtheria, Pertussis, Tetanus Vaccination: Yes Vertical Provider Document - CONSTITUTIONAL Notes: PHYSICAL EXAMINATION: GENERAL: Well-appearing, well-nourished and in no acute distress. HEAD: Atraumatic, normocephalic. EYES: Pupils equal round extraocular movements intact, conjunctiva are normal. ENT: Nares patent NECK: Normal range of motion LUNGS: No respiratory distress Musculoskeletal: Normal range of motion NEUROLOGICAL: Normal speech, normal gait. PSYCH: Normal mood, normal affect. SKIN: Scattered bruises across bilateral legs. - INFECTION CONTROL TRAVEL OUTSIDE OF THE [place] IN LAST 30 DAYS: No Course - Re-evaluation Re-evalutation: PPD placed by nursing staff, see CLAY. Patient given handwritten discharge instructions, patient verbalizes understanding and agreement that she must return in 48 to 72 hours for PPD read. She was further instructed to return during daytime hours when the PPD can be read. Music Coordinator from [facility] came back to continuous pickling line pickler the patient. - Vital Signs Vital signs: Temp Pulse Resp BP Pulse Ox 98.2 F 71 22 H 110/65 99 03/31/19 21:50 03/31/19 21:50 03/31/19 21:50 03/31/19 21:50 03/31/19 21:50 Discharge - Discharge Clinical Impression: ppd placement Condition: Stable Disposition: HOME, SELF-CARE Additional Instructions: You presented to the emergency department to have a PPD skin test placed. You stated that you needed this so [facility] you placement into a facility. This was placed for you on 04/01/2019 at approximately 00 30 a.m. It is very important for you to have this test read in 48 to 72 hours. If it is not read in 48 to 72 hours the test becomes null and void. You must present to the emergency department during business hours so that the appropriate staff can read this. Please return on 04/03/2019 at 9 AM to have the test read. Referrals: CHARLES DOBBINS, DO [Primary Care Provider] - Follow up as needed
[2019-04-01 01:17] VITALS: BP 112/60
== END 2019-04-01 01:16 | disposition home or self-care (01) ==
LOC: ER 21:26
DX: Z11.1 Encounter for screening for respiratory tuberculosis (principal); S80.12XA Contusion of left lower leg, initial encounter; S80.11XA Contusion of right lower leg, initial encounter; X58.XXXA Exposure to other specified factors, initial encounter
CPT/HCPCS: 99283; J3490

== ENCOUNTER 2019-04-01 14:43 | Emergency (ER) | payer MEDICAID ==
--- NOTE | 2019-04-01 15:45 | ER Document Report ---
HPI - HPI Time Seen by Provider: 04/01/19 15:15 Quality of pain: No pain Pain Level: Denies Context: Patient was brought to the department with IVC paperwork. Patient was noted by mental health team who evaluated her documentation and the circumstances regarding her arrival. Mental health team consulted with Dr. Trammell and patient's IVC paperwork was rescinded. Patient denies any medical complaint for her arrival here in the department. Patient is requesting a home as she is currently homeless as her brother does not want her to stay in his house anymore although she has been paying rent to stay there. Patient was discharged from the ER early this morning after having a PPD placed which will aid in her potential placement at [facility]. Patient denies any suicidal or homicidal ideation. Associated Symptoms: None Exacerbated by: Denies Relieved by: Denies Similar symptoms previously: Yes Recently seen / treated by doctor: Yes - ROS ROS below otherwise negative: Yes Systems Reviewed and Negative: Yes All other systems reviewed and negative - CONSTITUTIONAL Constitutional: DENIES: Fever - MUSCULOSKELETAL Musculoskeletal: DENIES: Extremity pain - DERM Skin Color: Normal Skin Problems: None Past Medical History - General Information source: Patient - Social History Smoking Status: Never Smoker Frequency of alcohol use: None Drug Abuse: None Lives with: Family Family History: Hypertension Endocrine Medical History: Reports: Hx Hypothyroidism. Denies: Hx Diabetes Mellitus Type 2 Renal/ Medical History: Denies: Hx Peritoneal Dialysis GI Medical History: Denies: Hx Gastroesophageal Reflux Disease Past Surgical History: Reports: Hx Cholecystectomy - Immunizations Hx Diphtheria, Pertussis, Tetanus Vaccination: Yes Vertical Provider Document - CONSTITUTIONAL Exam Limitations: No Limitations General Appearance: WD/WN, No Apparent Distress - INFECTION CONTROL TRAVEL OUTSIDE OF THE [place] IN LAST 30 DAYS: No - HEENT HEENT: Atraumatic, Normocephalic - NECK Neck: Normal Inspection, Supple - RESPIRATORY Respiratory: Breath Sounds Normal, No Respiratory Distress - CARDIOVASCULAR Cardiovascular: Regular Rate, Regular Rhythm - BACK Back: Normal Inspection - MUSCULOSKELETAL/EXTREMETIES Musculoskeletal/Extremeties: MAEW - NEURO Level of Consciousness: Awake, Alert, Appropriate Motor/Sensory: No Motor Deficit - DERM Integumentary: Warm, Dry, No Rash Course - Re-evaluation Re-evalutation: 04/01/19 15:30 Consulted with discharge planning, Dre, who agrees to speak with patient regrding outpt resources. ER patient advocate states that he spoke with Tammi with [facility] who states that she will be here to pick patient up at 5 PM and will take her to the homeless long-term. 04/01/19 15:52 Patient denies any suicidal or homicidal ideation. Patient does not meet IVC criteria at this time and denies any medical complaints for which she would like to be evaluated. Discharge - Discharge Clinical Impression: Homelessness, Family discord Condition: Stable Disposition: HOME, SELF-CARE Additional Instructions: Your brother should provide you with a formal eviction process if you are paying rent to stay in his home. Return as previously instructed to have your PPD read Follow-up with [facility] as previously planned. Referrals: CHARLES DOBBINS, [Primary Care Provider] - Follow up as needed
[2019-04-01 18:23] VITALS: BP 110/65
== END 2019-04-01 18:23 | disposition home or self-care (01) ==
LOC: ER 14:43
DX: Z59.0 Homelessness (principal); Z63.8 Other specified problems related to primary support group
CPT/HCPCS: 99283

== ENCOUNTER 2019-04-02 08:55 | Emergency (ER) | payer MEDICAID ==
[2019-04-02] MEDS ORDERED: METHYLPREDNISOLONE ACETATE INJ 80 MG/1 ML VIAL IM ONE ×2 (10:38→10:53)
--- NOTE | 2019-04-02 10:54 | ER Document Report ---
ED Extremity Problem, Lower - General Chief Complaint: Leg Pain Stated Complaint: FALL Primary Care Provider: CHARLES DOBBINS DO [Primary Care Provider] - Follow up as needed Mode of Arrival: Ambulatory - with walker Information source: Patient TRAVEL OUTSIDE OF THE [place] IN LAST 30 DAYS: No - HPI Patient complains to provider of: Injury. No: Altered sensation, Pain, Swelling, Other Location: Hip. No: Ankle, Back, Buttock, Foot, Knee, Leg, Thigh, Great Toe, 2nd Toe, 3rd Toe, 4th Toe, 5th Toe Where: Outdoors. No: Home, Indoors, Neighbor's, Senior Care, Public place, School, Sports, Work, Other Onset/Duration: Sudden. denies: Gradual, Constant, Intermittent, Persistent, W axing and waning, Better, Worse, Gone Quality of pain: Achy Severity: Mild Pain Level: 1 Context: denies: Barefoot, Burn, Crush, Direct blow, Fell, Laceration, Prolonged pressure on ext, Recent immobilization, Recent surgery, Recent travel, Stubbed, Twisted, Wearing shoes, Other Recent injury: Possibly Associated symptoms: denies: Chest pain, Chills, Dizzy, Fainting, Fever, Preston a crack, Preston a pop, Hurts to breath, Painful ambulation, Rapid heart rate, Seizure, Short of breath, Sweaty, Unable to bear weight, Weak, Other Exacerbated by: Movement Relieved by: denies: Nothing, Elevation, Ice, Rest, Other - Related Data Allergies/Adverse Reactions: morphine Allergy (Severe, Verified 04/02/19 09:54) ? iodine [Iodine] Allergy (Verified 04/02/19 09:54) Penicillins Allergy (Verified 04/02/19 09:54) Sulfa (Sulfonamide Antibiotics) Allergy (Verified 04/02/19 09:54) Home Medications: thyroid - Past Medical History - Social History Smoking Status: Unknown if Ever Smoked Chew tobacco use (# tins/day): No Frequency of alcohol use: None Drug Abuse: None Family History: Hypertension Patient has suicidal ideation: No Patient has homicidal ideation: No - Past Medical History Cardiac Medical History: Denies: Hx Coronary Artery Disease, Hx Heart Attack, Hx Hypercholesterolemia, Hx Hypertension - LOW BP Pulmonary Medical History: Denies: Hx Asthma, Hx Bronchitis, Hx COPD, Hx Pneumonia Neurological Medical History: Denies: Hx Cerebrovascular Accident, Hx Migraine, Hx Seizures Endocrine Medical History: Reports: Hx Hypothyroidism. Denies: Hx Diabetes Mellitus Type 2 Renal/ Medical History: Denies: Hx Peritoneal Dialysis GI Medical History: Denies: Hx Gastroesophageal Reflux Disease Musculoskeletal Medical History: Denies Hx Arthritis Past Surgical History: Reports: Hx Cholecystectomy - Immunizations Hx Diphtheria, Pertussis, Tetanus Vaccination: Yes Review of Systems - Review of Systems Constitutional: denies: No symptoms reported, See HPI, Chills, Diaphoresis, Fever, Malaise, Weakness, Other, Weight gain, Weight loss, Recent illness EENT: denies: No symptoms reported, See HPI, Eye pain, Eye discharge, Blurred vision, Tearing, Double vision, Ear pain, Ear discharge, Nose pain, Nose congestion, Nose discharge, Sinus pressure, Sinus discharge, Throat pain, Difficulty swallowing, Throat swelling, Mouth pain, Mouth swelling, Dental problem, Vertigo, Other Cardiovascular: denies: No symptoms reported, See HPI, Chest pain, Palpitations, Heart racing, Orthopnea, Dyspnea, Syncope, Dizziness, Lightheaded, Edema, Ot her, Paroxysmal Nocturnal Dysp Respiratory: denies: No symptoms reported, See HPI, Cough, Hurts to breathe, Hemoptysis, Short of breath, Sputum, Stridor, Wheezing, Other Gastrointestinal: denies: No symptoms reported, See HPI, Abdomen distended, Abdominal pain, Diarrhea, Nausea, Vomiting, Constipation, Blood streaked bowels, Poor appetite, Poor fluid intake, Blood in vomit, Black stools, Rectal bleeding, Last bowel movement, Fecal incontinence, Other Musculoskeletal: Joint pain Hematologic/Lymphatic: denies: No symptoms reported, See HPI, Anemia, Blood clots, Easy bleeding, Easy bruising, Enlarged lymph nodes, Swollen glands, Other Neurological/Psychological: denies: No symptoms reported, See HPI, Confusion, Dementia, Depression, Hallucinations, Anxiety, Homicidal ideation, Sensory change, Weakness, Gait changes, Loss of power, Paralysis, Seizure, Lost consciousness, Headaches, Speech impairment, Numbness, Suicidal ideation, Tingling, Tremor, Other -: Yes All other systems reviewed and negative Physical Exam - Vital signs Notes: PHYSICAL EXAMINATION: GENERAL: Well-appearing, well-nourished and in no acute distress. HEAD: Atraumatic, normocephalic. EYES: Pupils equal round and reactive to light, extraocular movements intact, sclera anicteric, conjunctiva are normal. ENT: nares patent, oropharynx clear without exudates. Moist mucous membranes. NECK: Normal range of motion, supple without lymphadenopathy LUNGS: Breath sounds clear to auscultation bilaterally and equal. No wheezes rales or rhonchi. HEART: Regular rate and rhythm without murmurs ABDOMEN: Soft, nontender, normoactive bowel sounds. No guarding, no rebound. No masses appreciated. EXTREMITIES: Normal range of motion, no pitting or edema. No cyanosis. Pain to palpation over the right greater trochanter. However near full range of motion except for internal rotation which is somewhat limited due to pain NEUROLOGICAL: No focal neurological deficits. Moves all extremities spontaneously and on command. PSYCH: Normal mood, normal affect. SKIN: Warm, Dry, normal turgor, no rashes or lesions noted. Course - Diagnostic Test Radiology reviewed: Image reviewed Radiology results interpreted by me: 04/02/19 11:30 Bilateral hips with pelvis show no fracture dislocation Discharge - Discharge Clinical Impression: Sciatica Qualifiers: Laterality: right Qualified Code(s): M54.31 - Sciatica, right side Condition: Good Disposition: HOME, SELF-CARE Instructions: Sciatica (OM) Additional Instructions: And a towel for 20 minutes 3 times a day return if worse follow-up with your regular doctor for possible MRI of your back if symptoms do not get better with medicine Prescriptions: Tramadol HCl [Ultram 50 mg Tablet] 50 mg PO Q12 #20 tablet Referrals: CHARLES DOBBINS DO [Primary Care Provider] - Follow up as needed
--- NOTE | 2019-04-02 11:33 | RADIOLOGY REPORT (SQ) ---
EXAM DESCRIPTION: HIP BILATERAL COMPLETED DATE/TIME: 04/02/2019 11:20 am REASON FOR STUDY: FX S/P FALL COMPARISON: None. NUMBER OF VIEWS: Two views TECHNIQUE: AP pelvis and additional frog-leg view of both hips. LIMITATIONS: None. FINDINGS: MINERALIZATION: Normal. HIPS: No acute fracture or dislocation. No worrisome bone lesions. PELVIS AND SACRUM: No acute fracture or dislocation. No worrisome bone lesions. PUBIS AND ISCHIUM: No acute fracture. LOWER LUMBAR SPINE: No significant findings as visualized. SOFT TISSUES: No findings. OTHER: No other significant finding. IMPRESSION: NEGATIVE STUDY OF THE PELVIS AND HIPS. TECHNICAL DOCUMENTATION: JOB ID: [id number] [employer]- All Rights Reserved Reading location - IP/workstation name: [email or web address]
== END 2019-04-02 14:00 | disposition home or self-care (01) ==
LOC: ER 08:55
DX: M54.31 Sciatica, right side (principal); M79.604 Pain in right leg; Z90.49 Acquired absence of other specified parts of digestive tract; Z88.0 Allergy status to penicillin; Z88.2 Allergy status to sulfonamides; Z88.6 Allergy status to analgesic agent
CPT/HCPCS: 99283; 96372; 73522; J1040

== ENCOUNTER 2019-04-03 03:12 | Emergency (ER) | payer MEDICAID ==
--- NOTE | 2019-04-03 08:26 | ER Document Report ---
HPI - HPI Patient complains to provider of: Shower Time Seen by Provider: 04/03/19 08:10 Onset: Other Pain Level: 2 Context: 59-year-old female presents emergency department with request for a shower. Apparently [facility] she works the beds are too high, the [facility] is too [facility]. Patient returned here with complaints of leg pain earlier today she was discharged with a prescription for tramadol. Patient reports she lost this prescription. Patient reports she is here for a shower. She likes the hospital soap. Patient has been a frequent visitor to the emergency department this past week. She was a social hold for 3 days. Arrangements were made for a place for her to live. Patient apparently does not like the homeless [facility]. Patient reports she cannot go home to her brother's house because he drinks too much. Patient is in no apparent distress respiratory rate even unlabored. Associated Symptoms: None Exacerbated by: Denies Relieved by: Denies Similar symptoms previously: Yes Recently seen / treated by doctor: Yes - REPRODUCTIVE Reproductive: DENIES: : Past Medical History - General Information source: Patient - Social History Smoking Status: Never Smoker Frequency of alcohol use: None Drug Abuse: None Lives with: Homeless Family History: Hypertension Patient has suicidal ideation: No Patient has homicidal ideation: No - Past Medical History Cardiac Medical History: Denies: Hx Coronary Artery Disease, Hx Heart Attack, Hx Hypercholesterolemia, Hx Hypertension - LOW BP Pulmonary Medical History: Denies: Hx Asthma, Hx Bronchitis, Hx COPD, Hx Pneumonia Neurological Medical History: Denies: Hx Cerebrovascular Accident, Hx Migraine, Hx Seizures Endocrine Medical History: Reports: Hx Hypothyroidism. Denies: Hx Diabetes Mellitus Type 2 Renal/ Medical History: Denies: Hx Peritoneal Dialysis GI Medical History: Denies: Hx Gastroesophageal Reflux Disease Musculoskeletal Medical History: Denies Hx Arthritis Past Surgical History: Reports: Hx Cholecystectomy - Immunizations Hx Diphtheria, Pertussis, Tetanus Vaccination: Yes Vertical Provider Document - CONSTITUTIONAL Agree With Documented VS: Yes Exam Limitations: No Limitations General Appearance: WD/WN, No Apparent Distress - Nontoxic looking - INFECTION CONTROL TRAVEL OUTSIDE OF THE [place] IN LAST 30 DAYS: No - HEENT HEENT: Atraumatic, Normocephalic - NECK Neck: Supple - RESPIRATORY Respiratory: Breath Sounds Normal, No Respiratory Distress - CARDIOVASCULAR Cardiovascular: Regular Rate, Regular Rhythm - MUSCULOSKELETAL/EXTREMETIES Musculoskeletal/Extremeties: LACHO FROM, Non-Tender - Patient shows me her right leg, healing insect bites noted. No open wounds or sores noted she reports she needs to take a shower at our facility because the soap feels better to her. - NEURO Level of Consciousness: Awake, Alert, Appropriate Motor/Sensory: No Motor Deficit - DERM Integumentary: Warm, Dry Course - Re-evaluation Re-evalutation: 04/03/19 08:37 I discussed patient with Deon from [facility]. She reports patient does have a bed at the homeless [facility] but the [facility] closes during the day so patient will return here. Patient does have a brother in the area but does not want to stay with him. Patient requesting shower. I instructed her that we just did not order showers here. We did provide her with some bath wipes. She was instructed to follow-up with the [facility]p. - Vital Signs Vital signs: Temp Pulse Resp BP Pulse Ox 98.1 F 76 91/62 L 100 04/03/19 03:52 04/03/19 03:52 04/03/19 03:52 04/03/19 03:52 Discharge - Discharge Clinical Impression: shower Condition: Stable Disposition: HOME, SELF-CARE Additional Instructions: *You have been evaluated for a request to take a shower *You have received bath wipes *Please follow-up with [facility] today *Return to ED for worsening condition, changes, needs Referrals: CHARLES DOBBINS DO [Primary Care Provider] - Follow up in 3-5 days
[2019-04-03 08:30] VITALS: BP 109/72
== END 2019-04-03 08:44 | disposition home or self-care (01) ==
LOC: ER 03:12
DX: Z59.0 Homelessness (principal); S80.861A Insect bite (nonvenomous), right lower leg, initial encounter; W57.XXXA Bitten or stung by nonvenomous insect and other nonvenomous arthropods, initial encounter
CPT/HCPCS: 99283